=== PATIENT | female | born 1985 | race Caucasian/White ===

== ENCOUNTER 2021-01-19 10:33 | Inpatient (IN) | payer MEDICAID ==
[~2021-01-19] VITALS: Ht 162.6 cm; Wt 75.0 kg
[2021-01-19] MEDS ORDERED: HYDROmorphone 2 MG/ML VIAL IVP ONE (11:45)
[2021-01-19] MEDS ORDERED: SODIUM CHLORIDE 0.9% 1,000 ML IV ONE (11:45)
[2021-01-19] MEDS ORDERED: ONDANSETRON HCL 4 MG/2 ML VIAL IVP ONE (11:45)
[2021-01-19 12:00] LABS: BASOPHILS % (AUTO) 0.6 % (0.0-2.0); EOSINOPHILS % (AUTO) 4.5 % (1.0-6.0); HEMATOCRIT 40.1 % (36-46); HEMOGLOBIN 13.3 g/dL (12.0-16.0); LYMPHOCYTES # (AUTO) 1.3 K/uL (1.0-4.8); LYMPHOCYTES % (AUTO) 22.5 % (22.0-44.0); MEAN CORPUSCULAR HEMOGLOBIN 28.1 pg (26.0-34.0); MEAN CORPUSCULAR HGB CONC 33.3 G/dL (31.0-37.0); MEAN CORPUSCULAR VOLUME 85 fL (80-100); MONOCYTES # (AUTO) 0.5 K/uL (0.1-1.0); MONOCYTES % (AUTO) 8.2 % (2.0-9.0); NEUTROPHILS # (AUTO) 3.6 K/uL (1.8-7.7); NEUTROPHILS % (AUTO) 64.2 % (40.0-70.0); PLATELET COUNT (AUTO) 285 K/uL (150-450); RED BLOOD CELL COUNT(AUTO) 4.74 MIL/uL (4.00-5.20)
[2021-01-19 12:17] LABS: ANION GAP 10 mmol/L (8-16); CALCIUM, TOTAL 9.3 mg/dL (8.8-10.5); CARBON DIOXIDE 27 mmol/L (22-29); CHLORIDE 104 mmol/L (98-107); CREATININE 0.72 mg/dL (0.60-1.30); GLOMERULAR FILTR. RATE CALC > 60 mL/min (>60); GLUCOSE,RANDOM 97 mg/dL (70-110); POTASSIUM 4.2 mmol/L (3.5-5.1); SODIUM SERUM 141 mmol/L (136-145); UREA NITROGEN, BLOOD 18 mg/dL (7-18)
[2021-01-19 12:23] LABS: ALANINE AMINOTRANSFERASE 769 U/L (12-78); ALBUMIN 4.1 g/dL (3.4-5.0); ALKALINE PHOSPHATASE 140 U/L (46-116); ASPARTATE AMINOTRANSFERASE 986 U/L (15-37); BILIRUBIN,TOTAL 0.9 mg/dL (0.1-1.0); LIPASE 109 U/L (73-393); TOTAL PROTEIN, SERUM 8.4 g/dL (6.4-8.2)
[2021-01-19 12:37] LABS: APPEARANCE,URINE CLOUDY (CLEAR); BILIRUBIN,URINE NEGATIVE (NEGATIVE); GLUCOSE, URINE (UA) NEGATIVE (NEGATIVE); KETONES,URINE NEGATIVE (NEGATIVE); LEUKOCYTE ESTERASE ,URINE NEGATIVE (NEGATIVE); NITRATE,URINE NEGATIVE (NEGATIVE); OCCULT BLOOD,URINE NEGATIVE (NEGATIVE); PH,URINE 7.5 (5.0-8.0); PROTEIN,URINE TRACE (NEGATIVE); UROBILINOGEN,URINE 0.2 mg/dL (<=1.0)
[2021-01-19 13:08] LABS: BACTERIA,URINE None Seen /HPF (None Seen); RBC,URINE None Seen /HPF (0-2); SQUAMOUS EPITHELIAL CELL,UR Few /LPF (None Seen); WBC,URINE None Seen /HPF (0-5)
[2021-01-19] MEDS ORDERED: PIPERACILLIN/TAZO 3.375 GM/D5W 50 ML IV ONE (13:40)
[2021-01-19] MEDS ORDERED: 0.9% SODIUM CHLORIDE 10 ML SYRINGE IVP PRN (13:45)
[2021-01-19] MEDS ORDERED: ONDANSETRON HCL 4 MG/2 ML VIAL IVP PRN (13:45)
[2021-01-19] MEDS ORDERED: HYDROmorphone 2 MG/ML VIAL IVP PRN ×2 (13:45→21:00)
[2021-01-19] MEDS ORDERED: METOCLOPRAMIDE HCL 5 MG/ML 2 ML VIAL IVP ONE (14:15)
[2021-01-19] MEDS ORDERED: GADOTERATE MEGLUMINE 10 MMOL/20 ML VIAL IVP ONE (14:16)
[2021-01-19 14:18] LABS: COVID AG,FIA SOURCE NASAL SWAB
[2021-01-19 16:03] VITALS: BP 108/74
[2021-01-19 16:04] VITALS: BP 108/74
[2021-01-19] MEDS: DEXTROSE 5%-0.45% SODIUM CHL 1,000 ML IV SCH (18:02)
[2021-01-19 20:21] VITALS: BP 120/68
[2021-01-19] MEDS: PIPERACILLIN/TAZO 3.375 GM/D5W 50 ML IV SCH (20:34)
[2021-01-20] MEDS: PIPERACILLIN/TAZO 3.375 GM/D5W 50 ML IV SCH ×4 (02:53→21:18)
[2021-01-20] MEDS: DEXTROSE 5%-0.45% SODIUM CHL 1,000 ML IV SCH ×3 (02:54→18:52)
[2021-01-20 04:50] VITALS: BP 101/59
[2021-01-20 06:50] LABS: BASOPHILS % (AUTO) 0.6 % (0.0-2.0); HEMATOCRIT 35.1 % (36-46); HEMOGLOBIN 11.6 g/dL (12.0-16.0); LYMPHOCYTES # (AUTO) 0.8 K/uL (1.0-4.8); LYMPHOCYTES % (AUTO) 13.5 % (22.0-44.0); MEAN CORPUSCULAR HEMOGLOBIN 27.8 pg (26.0-34.0); MEAN CORPUSCULAR HGB CONC 32.9 G/dL (31.0-37.0); MEAN CORPUSCULAR VOLUME 84 fL (80-100); MONOCYTES # (AUTO) 0.4 K/uL (0.1-1.0); NEUTROPHILS # (AUTO) 4.3 K/uL (1.8-7.7); NEUTROPHILS % (AUTO) 72.9 % (40.0-70.0); PLATELET COUNT (AUTO) 239 K/uL (150-450); RED BLOOD CELL COUNT(AUTO) 4.16 MIL/uL (4.00-5.20); RED CELL DISTRIBUTION WIDTH 14.1 % (11.5-14.5)
[2021-01-20 07:15] LABS: ALANINE AMINOTRANSFERASE 1084 U/L (12-78); ALBUMIN 3.3 g/dL (3.4-5.0); ALKALINE PHOSPHATASE 141 U/L (46-116); ANION GAP 7 mmol/L (8-16); ASPARTATE AMINOTRANSFERASE 662 U/L (15-37); BILIRUBIN,TOTAL 1.3 mg/dL (0.1-1.0); CALCIUM, TOTAL 8.3 mg/dL (8.8-10.5); CARBON DIOXIDE 28 mmol/L (22-29); CHLORIDE 104 mmol/L (98-107); CREATININE 0.84 mg/dL (0.60-1.30); GLOMERULAR FILTR. RATE CALC > 60 mL/min (>60); GLUCOSE,RANDOM 127 mg/dL (70-110); POTASSIUM 3.6 mmol/L (3.5-5.1); SODIUM SERUM 139 mmol/L (136-145); TOTAL PROTEIN, SERUM 6.7 g/dL (6.4-8.2); UREA NITROGEN, BLOOD 13 mg/dL (7-18)
[2021-01-20 08:12] VITALS: BP 94/50
[2021-01-20] MEDS ORDERED: SODIUM CHLORIDE 0.9% 250 ML IV ONE (09:46)
[2021-01-20 10:49] VITALS: BP 99/61
[2021-01-20] MEDS ORDERED: EPINEPHrine 1:10,000 [1 MG/10 ML] SYRINGE ONE (11:03)
[2021-01-20] MEDS ORDERED: SODIUM CHLORIDE 0.9% 1,000 ML ONE ×2 (11:19→12:35)
[2021-01-20] MEDS ORDERED: IOTHALAMATE MEGLUMINE 600 MG/ML 50 ML VIAL IVP ONE (11:38)
[2021-01-20] MEDS ORDERED: KETOROLAC TROMETHAMINE 30 MG/ML VIAL ONE (12:59)
[2021-01-20] MEDS ORDERED: FentaNYL CITRATE PF 100 MCG/2 ML VIAL IVP PRN (13:00)
[2021-01-20] MEDS ORDERED: KETOROLAC TROMETHAMINE 30 MG/ML VIAL IVP ONE (13:00)
[2021-01-20] MEDS ORDERED: MEPERIDINE-PF 25 MG/ML VIAL IVP PRN (13:00)
[2021-01-20] MEDS ORDERED: HYDROmorphone 2 MG/ML VIAL IVP PRN (13:00)
[2021-01-20] MEDS ORDERED: HYDROCODONE/ACETAMINOPHEN 5-325 MG TABLET PO PRN (13:15)
[2021-01-20] MEDS ORDERED: BISACODYL 10 MG RECTAL RECTAL SUPPOSITORY PR PRN (13:15)
[2021-01-20] MEDS ORDERED: ACETAMINOPHEN 325 MG TABLET PO PRN (13:15)
[2021-01-20] MEDS ORDERED: MORPHINE SULFATE 2 MG/ML SYRINGE IVP PRN (13:15)
[2021-01-20] MEDS ORDERED: IPRATROPIUM BROMIDE 0.5 MG/2.5 ML NEB SOLUTION NEB PRN (13:15)
[2021-01-20] MEDS ORDERED: ONDANSETRON HCL 4 MG/2 ML VIAL IVP PRN (13:15)
[2021-01-20] MEDS ORDERED: MAGNESIUM HYDROXIDE SUSPENSION 30 ML UDCUP PO PRN (13:15)
[2021-01-20] MEDS ORDERED: ZOLPIDEM TARTRATE 5 MG TABLET PO PRN (13:15)
[2021-01-20] MEDS ORDERED: ALBUTEROL SULFATE 2.5 MG/0.5 ML NEB SOLUTION NEB PRN (13:15)
[2021-01-20] MEDS ORDERED: FentaNYL CITRATE PF 100 MCG/2 ML VIAL ONE (13:28)
[2021-01-20] MEDS ORDERED: HYDROmorphone 2 MG/ML VIAL ONE (13:53)
[2021-01-20 14:30] VITALS: BP 99/58
[2021-01-20 15:17] VITALS: BP 95/57
[2021-01-20] MEDS: HEPARIN SODIUM,PORCINE 5,000 UNITS/ML VIAL SQ SCH ×2 (15:57→23:57)
[2021-01-20] MEDS: OXYGEN THERAPY IH SCH (20:00)
[2021-01-20 20:36] VITALS: BP 100/64
[2021-01-21] MEDS: PIPERACILLIN/TAZO 3.375 GM/D5W 50 ML IV SCH ×4 (03:10→20:44)
[2021-01-21 04:50] VITALS: BP 101/51
[2021-01-21] MEDS ORDERED: LIDOCAINE/PF 2% 5 ML SYRINGE IVP ONE (05:58)
[2021-01-21] MEDS ORDERED: MIDAZOLAM HCL 2 MG/2 ML VIAL IVP ONE (05:58)
[2021-01-21] MEDS ORDERED: PROPOFOL 1% 20 ML VIAL IVP ONE (05:58)
[2021-01-21] MEDS ORDERED: NEOSTIGMINE METHYLSULFATE 1 MG/ML 10 ML VIAL IVP ONE (05:58)
[2021-01-21] MEDS ORDERED: DEXAMETHASONE SOD PHOS 4 MG/ML VIAL IVP ONE (05:58)
[2021-01-21] MEDS ORDERED: FentaNYL CITRATE PF 100 MCG/2 ML VIAL IVP ONE (05:58)
[2021-01-21] MEDS ORDERED: GLUCAGON,HUMAN RECOMBINANT 1 MG VIAL IVP ONE (05:58)
[2021-01-21] MEDS ORDERED: ONDANSETRON HCL 4 MG/2 ML VIAL IVP ONE (05:58)
[2021-01-21] MEDS ORDERED: GLYCOPYRROLATE 0.2 MG/ML VIAL IM ONE (05:58)
[2021-01-21] MEDS ORDERED: ROCURONIUM BROMIDE 10 MG/ML 5 ML VIAL IVP ONE (05:58)
[2021-01-21] MEDS: OXYGEN THERAPY IH SCH (08:00)
[2021-01-21] MEDS: HEPARIN SODIUM,PORCINE 5,000 UNITS/ML VIAL SQ SCH ×2 (08:00→16:14)
[2021-01-21 08:04] VITALS: BP 100/62
[2021-01-21] MEDS ORDERED: BUPIVACAINE 0.25%/EPI 1:200,000/PF 10 ML VIAL ONE (08:30)
[2021-01-21] MEDS ORDERED: SODIUM CL IRRIG SOLN BAG 3,000 ML IRRIG ONE (08:30)
[2021-01-21] MEDS ORDERED: RINGERS SOLUTION,LACTATED 1,000 ML IV ONE (08:42)
[2021-01-21] MEDS ORDERED: SUGAMMADEX SODIUM 200 MG/2 ML VIAL IVP ONE (09:45)
[2021-01-21] MEDS ORDERED: FentaNYL CITRATE PF 100 MCG/2 ML VIAL IVP PRN (10:00)
[2021-01-21] MEDS ORDERED: HYDROmorphone 2 MG/ML VIAL IVP PRN ×2 (10:00→10:30)
[2021-01-21] MEDS ORDERED: MEPERIDINE-PF 25 MG/ML VIAL IVP PRN (10:00)
[2021-01-21] MEDS ORDERED: HYDROCODONE/ACETAMINOPHEN 5-325 MG TABLET PO PRN (10:30)
[2021-01-21] MEDS ORDERED: MORPHINE SULFATE 4 MG/ML SYRINGE IVP PRN (10:30)
[2021-01-21] MEDS: DEXTROSE 5%-0.45% SODIUM CHL 1,000 ML IV SCH (11:15)
[2021-01-21] MEDS: PANTOPRAZOLE SODIUM 40 MG/VIAL IVP SCH (11:15)
[2021-01-21 15:38] VITALS: BP 105/54
[2021-01-21] MEDS: IBUPROFEN 200 MG TABLET PO SCH ×2 (16:14→21:10)
[2021-01-21 19:51] VITALS: BP 111/63
[2021-01-21] MEDS ORDERED: OXYGEN THERAPY IH SCH (20:00)
[2021-01-22] MEDS: HEPARIN SODIUM,PORCINE 5,000 UNITS/ML VIAL SQ SCH ×2 (00:33→08:38)
[2021-01-22 03:08] VITALS: BP 111/58
[2021-01-22] MEDS: PIPERACILLIN/TAZO 3.375 GM/D5W 50 ML IV SCH ×2 (03:10→08:39)
[2021-01-22] MEDS ORDERED: METOCLOPRAMIDE HCL 5 MG/ML 2 ML VIAL IVP ONE (05:44)
[2021-01-22] MEDS ORDERED: FentaNYL CITRATE PF 100 MCG/2 ML VIAL IVP ONE (05:44)
[2021-01-22] MEDS ORDERED: LIDOCAINE/PF 2% 5 ML SYRINGE IVP ONE (05:44)
[2021-01-22] MEDS ORDERED: KETOROLAC TROMETHAMINE 60 MG/2 ML VIAL IM ONE (05:44)
[2021-01-22] MEDS ORDERED: DEXAMETHASONE SOD PHOS 4 MG/ML VIAL IVP ONE (05:44)
[2021-01-22] MEDS ORDERED: PROPOFOL 1% 20 ML VIAL IVP ONE (05:44)
[2021-01-22] MEDS ORDERED: SUGAMMADEX SODIUM 200 MG/2 ML VIAL IVP ONE (05:44)
[2021-01-22] MEDS ORDERED: MIDAZOLAM HCL 2 MG/2 ML VIAL IVP ONE (05:44)
[2021-01-22] MEDS ORDERED: ONDANSETRON HCL 4 MG/2 ML VIAL IVP ONE (05:44)
[2021-01-22] MEDS ORDERED: ROCURONIUM BROMIDE 10 MG/ML 5 ML VIAL IVP ONE (05:44)
[2021-01-22 07:37] VITALS: BP 102/55
[2021-01-22] MEDS: PANTOPRAZOLE SODIUM 40 MG/VIAL IVP SCH (08:39)
[2021-01-22] MEDS: IBUPROFEN 200 MG TABLET PO SCH (08:39)
[2021-01-22] MEDS ORDERED: SODIUM CHLORIDE 0.9% 250 ML IV ONE (08:48)
[2021-01-22] MEDS: OXYGEN THERAPY IH SCH (08:54)
== END 2021-01-22 14:30 | disposition home or self-care (01) | DRG 263 ==
LOC: EMS 10:33 → 6N 15:18
PROVIDERS: ADMIT Hospitalist; ATTEND Hospitalist
PROC: 0FC98ZZ Extirpation of Matter from Common Bile Duct, Via Natural or Artificial Opening Endoscopic (ICD-10-PCS; 2021-01-20)
PROC: BF101ZZ Fluoroscopy of Bile Ducts using Low Osmolar Contrast (ICD-10-PCS; 2021-01-20)
PROC: 0FT44ZZ Resection of Gallbladder, Percutaneous Endoscopic Approach (ICD-10-PCS; principal; 2021-01-21 09:00)
DX: K80.65 Calculus of gallbladder and bile duct with chronic cholecystitis with obstruction (principal); Z20.822 Contact with and (suspected) exposure to COVID-19
CPT/HCPCS: 74183; 76700; 80053; 81001; 83690; 84703; 85025; 87081; 88304; 99285; C9113; J0171; J0690; J1100; J1170; J1610; J1644; J1885; J2250; J2405; J2543; J2704; J2765; J3010; J3490; J7030; J7050; J7120; Q9961; Q9967